=== PATIENT | male | born 1995 | race African-American/Black ===

== ENCOUNTER 2022-01-23 20:19 | Emergency (ER) | payer OTHER ==
[2022-01-23 20:38] VITALS: BMI 22.3
[2022-01-23] MEDS ORDERED: ACETAMINOPHEN 1000 MG/100 ML BAG IVPB ONE (21:31)
[2022-01-23 21:43] LABS: VENOUS BASE EXCESS 4.7 mmol/L (-2-2); VENOUS O2 SATURATION 20.2 % (70-80); VENOUS PCO2 32.4 mmHg (38-52); VENOUS PH 7.532 (7.310-7.410)
[2022-01-23] MEDS ORDERED: SODIUM CHLORIDE 0.9% 1000 ML INFUS.BAG IV ONE ×2 (21:45→21:51)
[2022-01-23 21:47] LABS: BASO % 0.3 % (0-2.0); HEMATOCRIT 36.2 % (35.4-49); HEMOGLOBIN 12.3 GM/dL (11.7-16.9); LYMPH % 15.4 % (8-40); MCHC 33.9 g/dl (32.0-35.9); MEAN CELL VOLUME 79.8 fl (80-96); MEAN PLT VOLUME 10.1 fl (7.5-11.1); MONO % 7.1 % (3.8-10.2); NEUT % 77.2 % (42.8-82.8); PLATELET COUNT 89 10^3/uL (134-434); RBC 4.53 M/mm3 (4.00-5.60); RDW 13.8 % (11.9-15.9); WHITE BLOOD COUNT 7.8 K/mm3 (4.0-10.0)
[2022-01-23] MEDS ORDERED: ONDANSETRON 4 MG/2 ML VIAL IVPUSH ONE (21:47)
[2022-01-23] MEDS ORDERED: ONDANSETRON 4 MG/2 ML VIAL ONE (21:49)
[2022-01-23 21:53] LABS: INR 1.26 (0.83-1.09); PROTHROMBIN TIME (PATIENT) 14.5 SEC (9.7-13.0)
[2022-01-23 21:55] LABS: ACTIVATED PTT 31.7 SECONDS (25.2-36.5)
[2022-01-23 22:06] LABS: CHLORIDE 105 mmol/L (98-107); SODIUM 139 mmol/L (136-145)
[2022-01-23 22:08] LABS: CALCIUM 8.5 mg/dL (8.5-10.1)
[2022-01-23 22:09] LABS: ALBUMIN 3.3 g/dl (3.4-5.0); ANION GAP 8 MMOL/L (8-16); CO2 25 mmol/L (21-32); GLUCOSE,RANDOM 110 mg/dL (74-106); LIPASE 103 U/L (73-393)
[2022-01-23 22:12] LABS: CREATININE 1.4 mg/dL (0.55-1.3); SGOT/AST 34 U/L (15-37); SGPT/ALT 27 U/L (13-61)
[2022-01-23 22:14] LABS: BILIRUBIN,TOTAL 0.6 mg/dL (0.2-1); TOT PROT 9.8 g/dl (6.4-8.2)
[2022-01-23 22:15] LABS: ALK PHOS 78 U/L (45-117)
[2022-01-23 22:22] LABS: LACTIC ACID 2.7 mmol/L (0.4-2.0)
[2022-01-23 23:21] LABS: EPI CELLS 12 /uL (0-25.1); HYALINE CASTS 32 /uL (0-3.1); PH,URINE 5.5 (5.0-8.0); URINE APPEARANCE CLEAR; URINE BACTERIA 6 /uL (0-1359); URINE BILIRUBIN NEGATIVE (NEGATIVE); URINE COLOR YELLOW; URINE GLUCOSE (UA) NEGATIVE (NEGATIVE); URINE KETONE 2+ (NEGATIVE); URINE LEUK ESTERASE NEGATIVE (NEGATIVE); URINE NITRITE NEGATIVE (NEGATIVE); URINE PROTEIN 2+ (NEGATIVE); URINE UROBILINOGEN 0.2 mg/dL (0.2-1.0); URINE WBC 30 /uL (0-25.8)
[2022-01-24 01:21] VITALS: BP 108/62; PULSE 103
[2022-01-24] MEDS ORDERED: CEFTRIAXONE 1,000 MG in DEXTROSE 5%-WATER - 50 ML IVPB ONE (01:23)
[2022-01-24 01:24] LABS: VENOUS BASE EXCESS -1.5 mmol/L (-2-2); VENOUS O2 SATURATION 87.2 % (70-80); VENOUS PCO2 44.8 mmHg (38-52); VENOUS PH 7.352 (7.310-7.410)
[2022-01-24 01:25] VITALS: TEMP 98.3
[2022-01-24 01:32] LABS: URINE RBC 197.1 /uL (0-23.9)
[2022-01-24] MEDS ORDERED: CEFTRIAXONE 1 GM/50 ML BAG ONE (01:36)
[2022-01-24 02:09] LABS: MAGNESIUM 1.9 mg/dL (1.8-2.4)
[2022-01-24 02:16] LABS: PHOSPHOROUS 0.8 mg/dL (2.5-4.9)
== END 2022-01-24 02:56 | disposition home or self-care (01) ==
LOC: JER 20:19 → UNDOADMOB 01-24 01:25 → JERBED 01-24 01:25 → JER 01-24 02:56
PROC: 3E033GC Introduction of Other Therapeutic Substance into Peripheral Vein, Percutaneous Approach (ICD-10-PCS; principal; 2022-01-23)
DX: N39.0 Urinary tract infection, site not specified (principal); R10.13 Epigastric pain
CPT/HCPCS: 36415; 71045-TC-FY; 74177-TC; 80053; 81003; 82803; 83036; 83605; 83690; 83735; 84100; 85025; 85610; 85730; 86850; 86900; 86901; 87040; 87086; 87804; 99285-25; C9803-CS; U0003; U0005

== ENCOUNTER 2022-03-04 09:34 | Inpatient (IN) | payer OTHER ==
[2022-03-04] MEDS ORDERED: SODIUM CHLORIDE 0.9% 500 ML INFUS.BAG IV ONE (10:07)
[2022-03-04] MEDS ORDERED: ACETAMINOPHEN 500 MG TABLET (FP) PO ONE (10:07)
[2022-03-04] MEDS ORDERED: ACETAMINOPHEN 325 MG TABLET (FP) ONE (10:12)
[2022-03-04 11:03] LABS: BASO % 0.3 % (0-2.0); HEMATOCRIT 39.3 % (35.4-49); HEMOGLOBIN 13.2 GM/dL (11.7-16.9); LYMPH % 8.1 % (8-40); MCH 27.1 pg (25.7-33.7); MCHC 33.6 g/dl (32.0-35.9); MEAN CELL VOLUME 80.7 fl (80-96); MEAN PLT VOLUME 9.4 fl (7.5-11.1); MONO % 7.7 % (3.8-10.2); NEUT % 83.9 % (42.8-82.8); PLATELET COUNT 122 10^3/uL (134-434); RBC 4.86 M/mm3 (4.00-5.60); RDW 13.4 % (11.9-15.9)
[2022-03-04 11:25] LABS: CALCIUM 8.2 mg/dL (8.5-10.1)
[2022-03-04 11:26] LABS: ALBUMIN 3.1 g/dl (3.4-5.0)
[2022-03-04 11:29] LABS: CREATININE 1.3 mg/dL (0.55-1.3)
[2022-03-04 11:30] LABS: BILIRUBIN,TOTAL 0.6 mg/dL (0.2-1)
[2022-03-04 11:31] LABS: TOT PROT 8.8 g/dl (6.4-8.2)
[2022-03-04 11:42] LABS: ERYTHROCYTE SEDIMENTATION RATE 56 mm/hr (0-10)
[2022-03-04] MEDS ORDERED: CIPROFLOXACIN 400 MG/D5W 400 MG/200 ML IVPB IVPB ONE (13:08)
[2022-03-04] MEDS ORDERED: ENOXAPARIN NA (PORCINE) 40 MG/0.4 ML DISP.SYRIN SQ ONE (15:42)
[2022-03-04] MEDS: DEXTROSE 5%-NORMAL SALINE 1,000 ML IV SCH ×2 (16:00→19:08)
[2022-03-04] MEDS: ENOXAPARIN NA (PORCINE) 40 MG/0.4 ML DISP.SYRIN SQ SCH (16:00)
[2022-03-04 17:45] LABS: MAGNESIUM 2.4 mg/dL (1.8-2.4)
[2022-03-04 17:48] LABS: PHOSPHOROUS 3.6 mg/dL (2.5-4.9)
[2022-03-04] MEDS ORDERED: CIPROFLOXACIN 400 MG/D5W 400 MG/200 ML IVPB IVPB SCH (22:00)
[2022-03-05] MEDS: DEXTROSE 5%-NORMAL SALINE 1,000 ML IV SCH ×2 (03:30→15:55)
[2022-03-05] MEDS ORDERED: ACETAMINOPHEN 325 MG TABLET (FP) PO ONE ×2 (05:37→21:11)
[2022-03-05 09:07] LABS: BASO % 0.1 % (0-2.0); HEMATOCRIT 29.7 % (35.4-49); LYMPH % 9.9 % (8-40); MCH 27.1 pg (25.7-33.7); MCHC 33.6 g/dl (32.0-35.9); MEAN CELL VOLUME 80.6 fl (80-96); MEAN PLT VOLUME 9.9 fl (7.5-11.1); MONO % 8.8 % (3.8-10.2); NEUT % 81.2 % (42.8-82.8); PLATELET COUNT 96 10^3/uL (134-434); RBC 3.68 M/mm3 (4.00-5.60); RDW 13.6 % (11.9-15.9); WHITE BLOOD COUNT 8.8 K/mm3 (4.0-10.0)
[2022-03-05 09:25] LABS: BLOOD UREA NITROGEN 10.6 mg/dL (7-18); CALCIUM 7.2 mg/dL (8.5-10.1); MAGNESIUM 2.4 mg/dL (1.8-2.4)
[2022-03-05 09:28] LABS: PHOSPHOROUS 2.2 mg/dL (2.5-4.9)
[2022-03-05 09:29] LABS: CREATININE 0.8 mg/dL (0.55-1.3)
[2022-03-05 09:30] LABS: BILIRUBIN,TOTAL 0.4 mg/dL (0.2-1)
[2022-03-05 09:33] LABS: ALBUMIN 2.1 g/dl (3.4-5.0); TOT PROT 6.3 g/dl (6.4-8.2)
[2022-03-05] MEDS: ENOXAPARIN NA (PORCINE) 40 MG/0.4 ML DISP.SYRIN SQ SCH (10:17)
[2022-03-05 12:21] LABS: EPI CELLS 5 /uL (0-25.1); HYALINE CASTS 1 /uL (0-3.1); URINE APPEARANCE CLEAR; URINE BACTERIA 6 /uL (0-1359); URINE BILIRUBIN NEGATIVE (NEGATIVE); URINE COLOR YELLOW; URINE GLUCOSE (UA) NEGATIVE (NEGATIVE); URINE KETONE NEGATIVE (NEGATIVE); URINE LEUK ESTERASE NEGATIVE (NEGATIVE); URINE NITRITE NEGATIVE (NEGATIVE); URINE PROTEIN 1+ (NEGATIVE); URINE RBC 95 /uL (0-23.9); URINE UROBILINOGEN 0.2 mg/dL (0.2-1.0); URINE WBC 16 /uL (0-25.8)
[2022-03-05] MEDS ORDERED: DEXTROSE 5%-NORMAL SALINE 1,000 ML IV SCH (15:45)
[2022-03-05] MEDS ORDERED: ONDANSETRON 4 MG/2 ML VIAL IVPUSH ONE (23:59)
[2022-03-06] MEDS: VANCOMYCIN 250 MG/5 ML ORAL SOLUTION PO SCH ×5 (00:26→23:32)
[2022-03-06 10:22] LABS: BASO % 0.2 % (0-2.0); HEMATOCRIT 34.1 % (35.4-49); HEMOGLOBIN 11.1 GM/dL (11.7-16.9); LYMPH % 9.5 % (8-40); MCH 26.4 pg (25.7-33.7); MCHC 32.4 g/dl (32.0-35.9); MEAN CELL VOLUME 81.4 fl (80-96); MEAN PLT VOLUME 9.7 fl (7.5-11.1); MONO % 8.9 % (3.8-10.2); NEUT % 81.4 % (42.8-82.8); PLATELET COUNT 121 10^3/uL (134-434); RBC 4.19 M/mm3 (4.00-5.60); RDW 13.8 % (11.9-15.9); WHITE BLOOD COUNT 8.9 K/mm3 (4.0-10.0)
[2022-03-06 10:31] LABS: BLOOD UREA NITROGEN 5.3 mg/dL (7-18)
[2022-03-06 10:34] LABS: CREATININE 0.8 mg/dL (0.55-1.3)
[2022-03-06 10:35] LABS: CALCIUM 8.3 mg/dL (8.5-10.1)
[2022-03-06 13:39] VITALS: BMI 17.4
[2022-03-07] MEDS: VANCOMYCIN 250 MG/5 ML ORAL SOLUTION PO SCH ×2 (06:15→11:49)
[2022-03-07 09:09] LABS: BASO % 0.3 % (0-2.0); EOS % 0.1 % (0-4.5); HEMATOCRIT 33.7 % (35.4-49); HEMOGLOBIN 11.6 GM/dL (11.7-16.9); LYMPH % 15.3 % (8-40); MCH 27.5 pg (25.7-33.7); MCHC 34.4 g/dl (32.0-35.9); MEAN CELL VOLUME 79.9 fl (80-96); MEAN PLT VOLUME 9.8 fl (7.5-11.1); MONO % 10.1 % (3.8-10.2); NEUT % 74.2 % (42.8-82.8); PLATELET COUNT 132 10^3/uL (134-434); RBC 4.22 M/mm3 (4.00-5.60); RDW 14.1 % (11.9-15.9); WHITE BLOOD COUNT 6.1 K/mm3 (4.0-10.0)
[2022-03-07 09:55] LABS: CALCIUM 8.2 mg/dL (8.5-10.1)
[2022-03-07 09:56] LABS: BLOOD UREA NITROGEN 9.2 mg/dL (7-18); MAGNESIUM 2.5 mg/dL (1.8-2.4)
[2022-03-07 09:59] LABS: PHOSPHOROUS 3.1 mg/dL (2.5-4.9)
[2022-03-07 10:00] LABS: BILIRUBIN,TOTAL 0.5 mg/dL (0.2-1); TOT PROT 7.9 g/dl (6.4-8.2)
[2022-03-07 10:08] LABS: ALBUMIN 2.6 g/dl (3.4-5.0); CREATININE 0.8 mg/dL (0.55-1.3)
[2022-03-07 15:46] VITALS: BP 114/68; PULSE 102; TEMP 98.6
[2022-03-07 20:08] LABS: GLIADIN ANTIBODY IGA 4 units (0-19); GLIADIN ANTIBODY IGG 2 units (0-19); TRANSGLUTAMINASE IGG 4 U/mL (0-5)
[2022-03-07 20:08] LABS: GLIADIN ANTIBODY IGA 4 units (0-19); GLIADIN ANTIBODY IGG 2 units (0-19)
[2022-03-09 15:08] LABS: ATYPICAL pANCA <1:20 titer (Neg:<1:20)
== END 2022-03-07 15:46 | disposition home or self-care (01) | DRG 248 ==
LOC: JER 09:34 → JERBED 13:13 → J8W 18:45
PROVIDERS: ADMIT Internal Medicine
DX: A04.72 Enterocolitis due to Clostridium difficile, not specified as recurrent (principal); E88.09 Other disorders of plasma-protein metabolism, not elsewhere classified; D72.829 Elevated white blood cell count, unspecified; R10.9 Unspecified abdominal pain; R50.9 Fever, unspecified; D69.6 Thrombocytopenia, unspecified; D64.9 Anemia, unspecified
CPT/HCPCS: 36415; 74176-TC; 80048; 80053; 81003; 82272; 82438; 82607; 82710; 82728; 82746; 82784; 82962; 83516; 83520; 83540; 83550; 83605; 83615; 83735; 83986; 83993; 84100; 84302; 84443; 84999; 85025; 85045; 85651; 86022; 86038; 86140; 86255; 86256; 86671; 87040; 87045; 87046; 87324; 87449; 93005; 93010; 99285-25; C9803-CS; Q9967; U0003; U0005